=== PATIENT | female | born 1990 | race Two or more races ===

== ENCOUNTER → 2020-04-04 11:15 | Outpatient (BNVA) | payer OTHER, SELFPAY | PROVIDERS: Visit Provider Physician Assistant | DX: S69.91XA Unspecified injury of right wrist, hand and finger(s), initial encounter (principal); W17.89XA Other fall from one level to another, initial encounter | CPT/HCPCS: 73110; 99203 ==

== ENCOUNTER → 2020-04-11 12:58 | Outpatient (BNVA) | payer OTHER, SELFPAY | PROVIDERS: Visit Provider Physician Assistant | DX: S69.91XD Unspecified injury of right wrist, hand and finger(s), subsequent encounter (principal); X58.XXXD Exposure to other specified factors, subsequent encounter | CPT/HCPCS: 99213 ==

== ENCOUNTER → 2020-04-19 09:35 | Outpatient (BNVA) | payer OTHER, SELFPAY | PROVIDERS: Visit Provider Physician Assistant | DX: S69.91XD Unspecified injury of right wrist, hand and finger(s), subsequent encounter (principal); X58.XXXD Exposure to other specified factors, subsequent encounter | CPT/HCPCS: 99213 ==

== ENCOUNTER → 2020-05-02 10:10 | Outpatient (BNVA) | payer OTHER, SELFPAY | PROVIDERS: Visit Provider Internal Medicine | DX: S69.91XD Unspecified injury of right wrist, hand and finger(s), subsequent encounter (principal); W18.30XD Fall on same level, unspecified, subsequent encounter | CPT/HCPCS: 73200; 99214 ==

== ENCOUNTER → 2020-05-08 10:47 | Outpatient (BNVA) | payer OTHER, SELFPAY | PROVIDERS: PCP Internal Medicine; Visit Provider Orthopaedic Surgery | DX: M25.531 Pain in right wrist (principal); Z91.81 History of falling | CPT/HCPCS: 99202 ==

== ENCOUNTER 2020-06-07 13:19 | Outpatient (REF) | payer OTHER, SELFPAY ==
--- NOTE | 2020-06-07 | FL_ITS ---
PROCEDURE: XR INJECTION ARTHROGRAM WRIST, RIGHT CLINICAL INFORMATION: Pain right wrist, status post fall. COMPARISON: None TECHNIQUE: Following explaining right wrist arthrogram under fluoroscopy, procedure, benefits and risk, a written consent was obtained. Patient was placed prone with right arm extended and palm down position. The dorsal wrist was cleaned and draped in usual sterile manner with 0.25% chlorhexidine solution. Subsequently 1% lidocaine was injected overlying the radioscaphoid joint. A 25-gauge short needle was inserted from the skin into the radioscaphoid joint space and 1 mL of nonionic contrast was injected. A single image was obtained for documentation. Subsequently 1 mL of nonionic contrast was injected and images obtained. After confirming contrast within proximal radiocarpal joint space, 0.05 mL of gadolinium diluted with 7 mL of 0.25% lidocaine was constituted. Approximately 2-3 mL of this combination was injected into the joint space and needle withdrawn. Complete hemostasis achieved at puncture site. Simple Band-Aid applied postprocedure. Patient tolerated procedure extremely well. Patient was then helped to the MRI suite for further imaging. FINDINGS: On multiple images obtained under fluoroscopy the radiocarpal alignment, intercarpal and carpometacarpal alignment is maintained normal. No fractures seen. There is a needle positioned at the radioscaphoid joint and 2 mL of nonionic contrast was injected. A single image was obtained to document needle tip in the joint space. Subsequently diluted gadolinium was injected. FLUOROSCOPY TIME: 0.7 minutes. DOSE AREA PRODUCT: 0.227 uGy-m2 (microgray-meter squared). FL/FL arthrogram wrist RT IMPRESSION: Successful ultrasound-guided right wrist arthrogram performed without immediate complications.
--- NOTE | 2020-06-07 13:40 | MR_ITS ---
EXAMINATION: MR WRIST WITH CONTRAST, RIGHT CLINICAL INFORMATION: Pain in right wrist. COMPARISON: None TECHNIQUE: MRI of the wrist was performed following the intra-articular administration of a dilute gadolinium-containing solution (arthrogram) on a high-field scanner. FINDINGS: Ligaments/TFCC: A subtle partial tear of the radial attachment of the TFCC is suspected on coronal images . This is not full-thickness as contrast material does not clearly reach the distal radioulnar joint. A subtle full-thickness perforation without significant contrast material passage. No peripheral tears are identified. Volar ulnocarpal ligaments are intact. Scapholunate and lunotriquetral ligaments are intact. Bones and Articular Cartilage: Intact. No fractures or contusions. Marrow signal is normal. Articular cartilage is well preserved. Joint Fluid: No loose bodies. A small amount of contrast material leaks from the volar aspect of the joint at the level of the DRUJ, likely extending through the pisotriquetral recess along its proximal/volar margin. Muscles and Tendons: Minimal tendinosis of the extensor carpi ulnaris at the level of the distal ulna. No tendon subluxation or tear. No tenosynovitis. Nerves: Carpal tunnel and Guyon's canal are unremarkable. Superficial Soft Tissues: No significant ganglion cysts. MR/MR wrist RT w con IMPRESSION: Probable small partial tear of the radial attachment of the TFCC. Minimal extensor carpi ulnaris tendinosis. Otherwise, normal MR arthrogram of the wrist.
== END 2020-06-07 13:20 | disposition home or self-care (01) ==
LOC: HO.XRAY 13:19
PROVIDERS: PCP Internal Medicine; Visit Provider Orthopaedic Surgery
DX: M25.531 Pain in right wrist (principal); Z91.81 History of falling
CPT/HCPCS: 25246; 73115; 73222; A9585